=== PATIENT | male | born 2000 | race Caucasian/White ===

== ENCOUNTER 2019-10-13 15:13 | Emergency (ER) | payer SELFPAY ==
--- NOTE | 2019-10-13 15:33 | ER Document Report ---
ED Medical Screen (RME) - General Stated Complaint: NUMBNESS ON RIGHT SIDE OF BODY Time Seen by Provider: 10/13/19 15:25 Primary Care Provider: VERNA BACON MD [Primary Care Provider] - Follow up as needed Mode of Arrival: Ambulatory Information source: Patient Notes: Otherwise healthy 19-year-old male presenting to the emergency department chief complaint of right-sided numbness, tingling and weakness. Patient reports symptoms started at about 1230 today upon awakening. He states that gradually the symptoms have completely resolved. He states he has had episodes like this in the past, he states he has had 3 other episodes like this in the past year. He denies any recent injury or trauma. He does report a history of having migraine headaches in the past. He states he has not taken any medication for this in some time. He does report a mild headache right now, states it is a 2/5 without nausea, photophobia or phonophobia. Face symmetric. Tongue protrudes midline. Extraocular motions intact. Pupils are 2 mm and equally reactive. Normal speech, normal gait. 5 out of 5 strength in both the distal and proximal upper and lower extremities bilaterally. Sensation is grossly intact throughout. Finger to nose testing normal. Pronator drift normal. I have greeted and performed a rapid initial assessment of this patient. A comprehensive ED assessment and evaluation of the patient, analysis of test results and completion of the medical decision making process will be conducted by additional ED providers. I have specifically instructed the patient or family members with the patient to immediately return to any nursing staff should anything change in the patient's condition or with their chief complaint. TRAVEL OUTSIDE OF THE [place] IN LAST 30 DAYS: No - Related Data Allergies/Adverse Reactions: No Known Allergies Allergy (Verified 10/13/19 15:25) Past Medical History - Immunizations Immunizations up to date: Yes Hx Diphtheria, Pertussis, Tetanus Vaccination: Yes Doctor's Discharge - Discharge Referrals: VERNA BACON MD [Primary Care Provider] - Follow up as needed
[2019-10-13 15:58] LABS: ABSOLUTE BASOPHILS # (AUTO) 0.1 10^3/uL (0.0-0.2); ABSOLUTE EOSINOPHILS # (AUTO) 0.2 10^3/uL (0.0-0.6); ABSOLUTE LYMPHOCYTES (AUTO) 2.1 10^3/uL (0.5-4.7); ABSOLUTE MONOCYTES (AUTO) 0.7 10^3/uL (0.1-1.4); BASOPHILS % (AUTO) 1.3 % (0-2); EOSINOPHILS % (AUTO) 2.7 % (0-6); HEMATOCRIT 49.1 % (37.9-51.0); HEMOGLOBIN 16.8 g/dL (13.5-17.0); LYMPHOCYTES % (AUTO) 29.9 % (13-45); MEAN CORPUSCULAR HEMOGLOBIN 28.6 pg (27.0-33.4); MEAN CORPUSCULAR HGB CONC 34.3 g/dL (32.0-36.0); MEAN CORPUSCULAR VOLUME 83 fl (80-97); MONOCYTES % (AUTO) 10.2 % (3-13); PLATELET COUNT 331 10^3/uL (150-450); RED BLOOD COUNT 5.89 10^6/uL (4.35-5.55); RED CELL DISTRIBUTION WIDTH 12.9 % (11.5-14.0); SEGMENTED NEUTROPHILS % (AUTO) 55.9 % (42-78); TOTAL CELLS COUNTED % (AUTO) 100 %; WHITE BLOOD COUNT 7.1 10^3/uL (4.0-10.5)
--- NOTE | 2019-10-13 16:15 | ER Document Report ---
ED General - General Chief Complaint: Numbness of Face Stated Complaint: NUMBNESS ON RIGHT SIDE OF BODY Time Seen by Provider: 10/13/19 15:25 Primary Care Provider: GAB CHOWDHURY MD [EMERITUS] - Follow up in 3-5 days (for neurology) VERNA BACON MD [CHAR] - Follow up in 3-5 days Mode of Arrival: Ambulatory TRAVEL OUTSIDE OF THE [place] IN LAST 30 DAYS: No - HPI Notes: 19-year-old male to the emergency department with history of headaches with com plaints of right-sided facial numbness, right arm numbness and right leg numbness that began this morning and then progressed to a left-sided headache. He states that he has had headaches like this before. He states that it is typical for him to have facial numbness and leg and arm numbness right before his head starts to hurt. He states that typically the numbness and tingling resolved just as the pain starts. That he also happened today. He states that he is no longer numb in the face or in the arm or leg. He does also state that he had some aura in his right eye and was seeing spots and squiggly lines. He denies any fevers, chills, neck pain, nausea, vomiting. He has been on a hea dac medicine in the past for these but he cannot remember what it was called. He thinks he was on them about 3 years ago. He has not seen a headache specialist since. He states that he gets these headaches about 1-2 times a month. He usually rests and let the headache pass. He has not taken anything for the headache today. - Related Data Allergies/Adverse Reactions: No Known Allergies Allergy (Verified 10/13/19 15:25) Past Medical History - General Information source: Patient - Social History Smoking Status: Former Smoker Chew tobacco use (# tins/day): No Frequency of alcohol use: None Drug Abuse: None Family History: Reviewed & Not Pertinent Patient has suicidal ideation: No Patient has homicidal ideation: No - Immunizations Immunizations up to date: Yes Hx Diphtheria, Pertussis, Tetanus Vaccination: Yes Review of Systems - Review of Systems Constitutional: denies: Chills, Fever EENT: See HPI. denies: Nose congestion, Nose discharge Cardiovascular: denies: Chest pain, Orthopnea, Dyspnea, Syncope, Dizziness, Lightheaded Respiratory: denies: Cough, Short of breath Gastrointestinal: denies: Abdominal pain, Diarrhea, Nausea, Vomiting Musculoskeletal: denies: Back pain, Neck pain Skin: denies: Rash Neurological/Psychological: See HPI, Headaches, Numbness. denies: Seizure, Lost consciousness -: Yes All other systems reviewed and negative Physical Exam - Vital signs Vitals: Temp Pulse Resp BP Pulse Ox 97.8 F 73 16 133/85 H 95 10/13/19 15:19 10/13/19 15:19 10/13/19 15:19 10/13/19 15:19 10/13/19 15:19 Interpretation: Normal - General General appearance: Appears well, Alert In distress: None - HEENT Head: Normocephalic, Atraumatic Eyes: Normal Pupils: PERRL Fundascopic: Normal Ears: Normal External canal: Normal Tympanic membrane: Normal Sinus: Normal Nasal: Normal Mouth/Lips: Normal Mucous membranes: Normal Pharynx: Normal Neck: Normal - Respiratory Respiratory status: No respiratory distress. No: Retractions, Tachypnea Chest status: Nontender. No: Accessory muscle use Breath sounds: Normal. No: Rales, Rhonchi, Stridor, Wheezing Chest palpation: Normal - Cardiovascular Rhythm: Regular Heart sounds: Normal auscultation Murmur: No - Abdominal Inspection: Normal Distension: No distension Bowel sounds: Normal Tenderness: Nontender Organomegaly: No organomegaly - Back Back: Normal, Nontender. No: CVA tenderness - Extremities General upper extremity: Normal inspection, Nontender, Normal color, Normal ROM, Normal temperature General lower extremity: Normal inspection, Nontender, Normal color, Normal ROM, Normal temperature, Normal weight bearing. No: Sindhu's sign - Neurological Neuro grossly intact: Yes Cognition: Normal Orientation: AAOx4 Eastern Coma Scale Eye Opening: Spontaneous Eastern Coma Scale Verbal: Oriented Eloy Coma Scale Motor: Obeys Commands Eastern Coma Scale Total: 15 Speech: Normal Cranial nerves: Normal. No: Facial palsy, Sensory deficit Cerebellar coordination: Normal. 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 No: Pronator drift Sensory: Normal Notes: Normal ggfiic-hr-kcox bilaterally. Normal sskl-ss-lyss bilaterally. No nystagmus. Patient denies any sensory deficits. He states that all of his numbness and tingling has resolved. - Psychological Associated symptoms: Normal affect, Normal mood - Skin Skin Temperature: Warm Skin Moisture: Dry Skin Color: Normal Course - Re-evaluation Re-evalutation: 10/13/19 Patient has done well in the emergency department. He is not orthostatic. His lab work is reassuring. His head CT is reassuring. He does not have evidence of an infectious etiology for his headache. He has had significant improvement of his headache since getting Fioricet. He has had a headache exactly like this before with the exact same facial numbness arm and leg numbness as well. He states this is not different than his prior headache syndrome. Do think that this is likely a migraine headache with a little variation on an aura. Doubt SAH. Do think that patient needs to follow with a neurologist. We will give him information for follow-up. We will also send home with Fioricet. Patient agrees with the plan. Urged to return if he has any worsening symptoms. - Vital Signs Vital signs: Temp Pulse Resp BP Pulse Ox 97.7 F 65 16 117/65 95 10/13/19 18:11 10/13/19 17:41 10/13/19 15:19 10/13/19 17:41 10/13/19 15:19 - Laboratory Result Diagrams: 10/13/19 15:43 10/13/19 15:43 Laboratory results interpreted by me: 10/13/19 10/13/19 15:43 15:43 RBC 5.89 H Potassium 5.1 H Carbon Dioxide 34 H Glucose 71 L Calcium 10.4 H Total Protein 8.5 H Albumin 5.3 H - Diagnostic Test Radiology reviewed: Image reviewed, Reports reviewed Discharge - Discharge Clinical Impression: Migraine headache with aura Qualifiers: Status migrainosus presence: with status migrainosus Intractability: not intractable Qualified Code(s): G43.101 - Migraine with aura, not intractable, with status migrainosus Condition: Stable Disposition: HOME, SELF-CARE Instructions: Migraine Headache ([facility]) Additional Instructions: FOLLOW UP WITH NEUROLOGIST WITHOUT FAIL. RETURN IF WORSENING SYMPTOMS. TAKE MEDICINES PRESCRIBED. Prescriptions: Butalb/Acetaminophen/Caffeine [Fioricet (50-325-40 mg) Tablet] 1 tab PO Q6H PRN #15 tab PRN Reason: Referrals: VERNA BACON MD [EMERITUS] - Follow up in 3-5 days GAB CHOWDHURY MD [EMERITUS] - Follow up in 3-5 days (for neurology)
[2019-10-13 16:16] LABS: ALBUMIN 5.3 g/dL (3.5-5.0); ALKALINE PHOSPHATASE 62 U/L (38-126); ANION GAP 9 (5-19); ASPARTATE AMINO TRANSFERASE 26 U/L (17-59); BILIRUBIN,DIRECT 0.1 mg/dL (0.0-0.4); BLOOD UREA NITROGEN 11 mg/dL (7-20); CALCIUM 10.4 mg/dL (8.4-10.2); CARBON DIOXIDE 34 mmol/L (22-30); CHLORIDE 100 mmol/L (98-107); GLUCOSE 71 mg/dL (75-110); POTASSIUM 5.1 mmol/L (3.6-5.0); TOTAL PROTEIN 8.5 g/dL (6.3-8.2)
--- NOTE | 2019-10-13 16:21 | RADIOLOGY REPORT (SQ) ---
EXAM DESCRIPTION: CT HEAD WITHOUT COMPLETED DATE/TIME: 10/13/2019 2:57 pm REASON FOR STUDY: neuro symptoms, now resolved COMPARISON: None. TECHNIQUE: Axial images acquired through the brain without intravenous contrast. Images reviewed wi th bone, brain and subdural windows. Images stored on PACS. All CT scanners at this facility use dose modulation, iterative reconstruction, and/or weight based d osing when appropriate to reduce radiation dose to as low as reasonably achievable (ALARA). [facility]: Dose Right [facility]: CareDose [facility]: Dose Right [facility]: Teradose 4D [facility]: [employer] RADIATION DOSE: CT Rad equipment meets quality standard of care and radiation dose reduction techniq ues were employed. CTDIvol: 53.2 mGy. DLP: 884 mGy-cm. mGy. LIMITATIONS: None. FINDINGS: VENTRICLES: Normal size and contour. CEREBRUM: No masses. No hemorrhage. No midline shift. No evidence for acute infarction. Normal gra y/white matter differentiation. No areas of low density in the white matter. CEREBELLUM: No masses. No hemorrhage. No alteration of density. No evidence for acute infarction. EXTRAAXIAL SPACES: No fluid collections. No masses. ORBITS AND GLOBE: No intra- or extraconal masses. Normal contour of globe without masses. CALVARIUM: No fracture. PARANASAL SINUSES: No fluid or mucosal thickening. SOFT TISSUES: No mass or hematoma. OTHER: No other significant finding. IMPRESSION: No acute intracranial hemorrhage, mass, or evidence of acute territorial infarct. EVIDENCE OF ACUTE STROKE: NO. COMMENT: Quality ID # [id number]: Final reports with documentation of one or more dose reduction techniques (e.g., Automated exposure control, adjustment of the mA and/or kV according to patient size, use of iterative reconstruction technique) TECHNICAL DOCUMENTATION: JOB ID: [id number] [employer]- All Rights Reserved Reading location - IP/workstation name: [email or web address]
[2019-10-13] MEDS ORDERED: BUTALB/ACETAMINOPHEN/CAFFEINE 1 TAB EACH PO ONE (16:41)
[2019-10-13 17:42] VITALS: BP 117/65
== END 2019-10-13 18:13 | disposition home or self-care (01) ==
LOC: ER 15:13
DX: G43.101 Migraine with aura, not intractable, with status migrainosus (principal); R20.0 Anesthesia of skin; Z87.891 Personal history of nicotine dependence
CPT/HCPCS: 99284; 36415; 85025; 80053; 70450; J3490